=== PATIENT | female | born 1980 | race Caucasian/White ===

== ENCOUNTER 2017-01-15 10:32 | Emergency (ER) | payer OTHER ==
--- NOTE | 2017-01-15 11:14 | UC ---
Abdominal Pain Female HPI - HPI Summary HPI Summary: LLQ ABDOMINAL PAIN X 2 DAYS + RADIATION TO HER BACK NO FEVER, + CHILLS, NO N/V/D/C HX OF RECURRENT DIVERTICULITIS NO URINARY SX. - History of Current Complaint Chief Complaint: UCGI Stated Complaint: LOWER ABDOMINAL/BACK PAIN/CHILLS Time Seen by Provider: 01/15/17 10:53 Hx Obtained From: Patient Hx Last Menstrual Period: 12/21/16 ?: No Onset/Duration: Gradual Onset, Lasting Days - 2, Still Present Timing: Constant Severity Initially: Moderate Severity Currently: Moderate Location: Discrete At: LLQ Radiates: Yes Radiates to: Back Character: Aching, Dull Aggravating Factor(s): Movement Alleviating Factor(s): Nothing Associated Signs and Symptoms: Positive: Back Pain. Negative: Diaphoresis, Fever, Cough, Chest Pain, Dizzy, Constipation, Blood in Stool, Urinary Symptoms , Decreased Appetite, Vaginal Bleeding, Vaginal Discharge, Nausea, Vomiting, Diarrhea Allergies/Adverse Reactions: Allergies Allergy/AdvReac Type Severity Reaction Status Date / Time Morphine Allergy Severe SHAKING Verified 01/15/17 10:46 TREMORS Home Medications: Home Medications ARIPiprazole TAB* [Abilify TAB*] 15 mg PO DAILY 01/15/17 [History Confirmed ] Sertraline* [Zoloft*] 100 mg PO DAILY 01/15/17 [History Confirmed 01/15/17] PMH/Surg Hx/FS Hx/Imm Hx Endocrine History Of: Reports: Diabetes - Type II Cardiovascular History Of: Reports: Hypertension Respiratory History Of: Reports: Asthma, Bronchitis - FREQUENT 3 MONTHS AGO GI/ History Of: Reports: Kidney Stones - NONE KNOWN CURRENTLY Psychological History Of: Reports: Anxiety - MAJOR DEPRESSIVE DISORDER ANXIETY OK ON MEDS - Surgical History Surgical History: Yes Surgery Procedure, Year, and Place: vocal cord surgery 2012. GASTRIC BYPASS. - Family History Known Family History: Positive: Diabetes - Social History Alcohol Use: None Substance Use Type: None Smoking Status (MU): Never Smoked Tobacco Review of Systems Constitutional: Chills, Fatigue Skin: Negative Eyes: Negative ENT: Negative Respiratory: Negative Cardiovascular: Negative Gastrointestinal: Abdominal Pain Genitourinary: Negative All Other Systems Reviewed And Are Negative: Yes Physical Exam Triage Information Reviewed: Yes Appearance: Well-Appearing, Obese Vital Signs: Initial Vital Signs Temp 98.6 F 02/23/17 10:51 Pulse 109 01/15/17 10:51 Resp 18 01/15/17 10:51 BP 125/93 01/15/17 10:51 Pulse Ox 99 01/15/17 10:51 Vital Signs Reviewed: Yes Eyes: Positive: Conjunctiva Clear ENT: Positive: Normal ENT inspection, Hearing grossly normal, Pharynx normal Neck exam: Normal Neck: Positive: Supple, Nontender, No Lymphadenopathy Respiratory: Positive: Chest non-tender, Lungs clear, Normal breath sounds Cardiovascular: Positive: RRR, No Murmur, Pulses Normal Abdomen Description: Positive: No Organomegaly, Soft, Other: - LLQ TENDERNESS. Negative: CVA Tenderness (R), CVA Tenderness (L), Distended, Guarding Bowel Sounds: Positive: Present Musculoskeletal Exam: Normal Abd Pain Female Course/Dx - Differential Dx/Diagnosis Provider Diagnoses: ADOMINAL PAIN. DIVERTICULITIS Discharge - Discharge Plan Condition: Stable Disposition: HOME Prescriptions: Ciprofloxacin TAB* [Cipro Tab*] 500 mg PO BID #20 tab Metronidazole [Flagyl 500 MG TAB] 500 mg PO BID #20 tab Patient Education Materials: Diverticulitis (ED) Referrals: JEANNE Blevins [Primary Care Provider] - 2 Weeks
[2017-01-15 11:25] VITALS: BP 137/86
== END 2017-01-15 11:29 | disposition home or self-care (01) ==
LOC: UCCORT 10:32
DX: K57.92 Diverticulitis of intestine, part unspecified, without perforation or abscess without bleeding (principal); F41.9 Anxiety disorder, unspecified; F32.9 Major depressive disorder, single episode, unspecified; E66.9 Obesity, unspecified; Z98.84 Bariatric surgery status; Z88.5 Allergy status to narcotic agent
CPT/HCPCS: 99212; G0463

== ENCOUNTER 2017-02-10 09:14 | Emergency (ER) | payer OTHER ==
[2017-02-10 09:49] VITALS: BP 139/69
--- NOTE | 2017-02-10 10:09 | RAD ---
HISTORY: Pain with breathing COMPARISONS: March 22, 2012 VIEWS: 2: Frontal dual-energy and lateral views of the chest. FINDINGS: CARDIOMEDIASTINAL SILHOUETTE: The cardiomediastinal silhouette is normal. JAY: The jay are normal. PLEURA: The costophrenic angles are sharp. No pleural abnormalities are noted. LUNG PARENCHYMA: There is minimal linear opacification of the left lower lobe ABDOMEN: The upper abdomen is clear. There is no subphrenic gas. BONES AND SOFT TISSUES: No bone or soft tissue abnormalities are noted. OTHER: None. IMPRESSION: MINIMAL LINEAR ATELECTASIS OF LEFT LOWER LOBE
--- NOTE | 2017-02-10 10:21 | UC ---
Back Pain HPI - HPI Summary HPI Summary: right lower back pain x 2 days s/p abdominal surgery about 10 days ago with complication of pneumonia now having right lower back pain , worse with breathing no fever , no chills, no cough - History of Current Complaint Chief Complaint: UCRespiratory Stated Complaint: RIGHT LOWER BACK PAIN W DEEP BREATH Time Seen by Provider: 02/10/17 09:32 Hx Obtained From: Patient Hx Last Menstrual Period: 01/19/17 ?: No Onset/Duration: Gradual Onset, Lasting Days - 2, Still Present Timing: Intermittent, Lasting Minutes - 1 Severity Initially: Moderate Severity Currently: Moderate Back Pain: Is Discrete @ - right lower back Character: Sharp, Aching Aggravating: Cough - and breathing Associated Signs And Symptoms: Negative: Swelling, Redness, Bruising, Fever, Weakness, Numbness, Tingling, Abdominal Pain, Flank Pain, Bowel Incontinence, Weight Loss - Allergies/Home Medications Allergies/Adverse Reactions: Allergies Allergy/AdvReac Type Severity Reaction Status Date / Time Morphine Allergy Severe SHAKING Verified 02/10/17 09:36 TREMORS Home Medications: Home Medications HYDROcodone/ACETAMIN 5-325 MG* [Chandler 5-325 TAB*] 1 tab PO Q4H PRN 02/10/17 [ History Confirmed 02/10/17] PMH/Surg Hx/FS Hx/Imm Hx Endocrine History Of: Reports: Diabetes - Type II Cardiovascular History Of: Reports: Hypertension Respiratory History Of: Reports: Asthma - OK NOW INST BRING RESCUE INHALER, Bronchitis - FREQUENT 3 MONTHS AGO GI/ History Of: Reports: Kidney Stones - NONE KNOWN CURRENTLY Psychological History Of: Reports: Anxiety - MAJOR DEPRESSIVE DISORDER ANXIETY OK ON MEDS - Surgical History Surgical History: Yes Surgery Procedure, Year, and Place: vocal cord surgery 2012. gastric bypass. ulcer surgery- 01/2017 - Family History Known Family History: Positive: Diabetes - Social History Alcohol Use: None Substance Use Type: None Smoking Status (MU): Never Smoked Tobacco Review of Systems Constitutional: Negative Skin: Negative Eyes: Negative ENT: Negative Respiratory: Negative Cardiovascular: Negative All Other Systems Reviewed And Are Negative: Yes Physical Exam Triage Information Reviewed: Yes Appearance: Well-Appearing, No Pain Distress, Obese Vital Signs: Initial Vital Signs Temp 98.6 F 02/10/17 09:39 Pulse 89 02/10/17 09:39 Resp 20 02/10/17 09:39 BP 139/69 03/21/17 09:39 Pulse Ox 98 02/10/17 09:39 Vital Signs Reviewed: Yes Eye Exam: Normal Eyes: Positive: Conjunctiva Clear ENT: Positive: Normal ENT inspection, Hearing grossly normal, Pharynx normal Neck exam: Normal Neck: Positive: Supple, Nontender, No Lymphadenopathy Respiratory: Positive: Chest non-tender, Lungs clear, Normal breath sounds, No respiratory distress Cardiovascular: Positive: RRR, No Murmur, Pulses Normal Abdomen Description: Positive: Nontender, Soft Bowel Sounds: Positive: Present Musculoskeletal: Positive: Strength Intact, ROM Intact, No Edema Neurological: Positive: Alert, Muscle Tone Normal Skin Exam: Normal Back Pain Course/Dx - Differential Dx/Diagnosis Provider Diagnoses: pleurisy Discharge - Discharge Plan Condition: Stable Disposition: HOME Patient Education Materials: Low Back Strain (ED) Referrals: JEANNE David [Primary Care Provider] - 7 Days Additional Instructions: normal chest xray
== END 2017-02-10 10:28 | disposition home or self-care (01) ==
LOC: UCCORT 09:14
DX: R09.1 Pleurisy (principal); E66.9 Obesity, unspecified; Z98.84 Bariatric surgery status; Z88.5 Allergy status to narcotic agent
CPT/HCPCS: 71020; 99211; G0463

== ENCOUNTER 2017-07-26 19:27 | Emergency (ER) | payer OTHER ==
[2017-07-26 19:49] VITALS: BP 141/98
--- NOTE | 2017-07-26 19:56 | UC ---
Knee Pain HPI - HPI Summary HPI Summary: Was changing tire on knees and lost balance and fell onto knee. - History of Current Complaint Chief Complaint: UCLowerExtremity Stated Complaint: RIGHT KNEE INJURY Hx Obtained From: Patient Hx Last Menstrual Period: 06/29/17 ?: No Onset/Duration: Sudden Onset - Fell onto knee, Worse Since - onset with walking. Severity Initially: Moderate Severity Currently: Severe Character: Sharp, Aching Aggravating Factor(s): Movement, Weight Bearing, Stairs Alleviating Factor(s): Rest, Cold Associated Signs And Symptoms: Positive: Bruising. Negative: Numbness, Tingling Able to Bear Weight: Yes - Allergies/Home Medications Allergies/Adverse Reactions: Allergies Allergy/AdvReac Type Severity Reaction Status Date / Time Morphine Allergy Severe SHAKING Verified 02/10/17 09:36 TREMORS Home Medications: Home Medications Omeprazole CAP* [Prilosec CAP* 20 MG] 20 mg PO DAILY 07/26/17 [History Confirmed 07/26/17] Venlafaxine EXT RELEASE CAP* [Effexor Xr CAP*] 37.5 mg PO DAILY 07/26/17 [ History Confirmed 07/26/17] PMH/Surg Hx/FS Hx/Imm Hx GI/ History: Ulcer - Surgical History Surgical History: Yes Surgery Procedure, Year, and Place: vocal cord surgery 2011. gastric bypass. ulcer surgery- 01/2017 - Family History Known Family History: Positive: Cardiac Disease, Hypertension, Diabetes - Social History Occupation: Unemployed Lives: With Family Alcohol Use: None Substance Use Type: None Smoking Status (MU): Never Smoked Tobacco Have You Smoked in the Last Year: No Review of Systems Skin: Bruising Musculoskeletal: Arthralgia - right knee All Other Systems Reviewed And Are Negative: Yes Physical Exam Triage Information Reviewed: Yes Appearance: Well-Appearing, Pain Distress - mild/ moderate, Obese Vital Signs: Initial Vital Signs Temp 98.4 F 07/26/17 19:47 Pulse 93 07/26/17 19:47 Resp 14 07/26/17 19:47 BP 141/98 07/26/17 19:47 Vital Signs Reviewed: Yes Eyes: Positive: Conjunctiva Clear Neck exam: Normal Respiratory Exam: Normal Cardiovascular Exam: Normal Musculoskeletal: Positive: ROM Limited @ - right knee with tenderness over the patella., Other: - guarding, unalbe to test instability Neurological: Positive: Other: - decreased sensation to pinprick over the patella. Psychological Exam: Normal Skin Exam: Normal Knee Pain Course/Dx - Differential Dx/Diagnosis Differential Diagnosis/HQI/PQRI: Contusion, Fracture (Closed), Sprain Provider Diagnoses: Contusion knee. Nerve contusion. Discharge - Discharge Plan Condition: Stable Disposition: HOME Patient Education Materials: Contusion in Adults (ED) Referrals: JEANNE David [Primary Care Provider] - 5 Days (Recheck on the pain.) Additional Instructions: A nerve contusion may take weeks or months to heal. You can try ice, but it may cause more pain. GABAPENTIN: Gabapentin is an anti-seizure medication that is more often used for nerve pain. It helps to stabilize the nerve to stop the pain. Its primary side effect is sedation which will improve over time. Most people will start with only one capsule 1 to 2 hours before bed, but if your pain is more severe you may want to start with one capsule twice a day. If the pain is still an issue after another 7 to 10 days the dose may be increased to a maximum of 1 capsule 3 times a day.
--- NOTE | 2017-07-26 20:45 | RAD ---
INDICATION: Right knee injury. TECHNIQUE: 4 views of the right knee were obtained. FINDINGS: The bones are in normal alignment. No joint effusion or fracture is seen. Joint spaces appear maintained. IMPRESSION: NO EVIDENCE FOR FRACTURE.
== END 2017-07-26 20:39 | disposition home or self-care (01) ==
LOC: UCCORT 19:27
DX: S80.01XA Contusion of right knee, initial encounter (principal); W18.39XA Other fall on same level, initial encounter; S84.91XA Injury of unspecified nerve at lower leg level, right leg, initial encounter; Z88.5 Allergy status to narcotic agent; K25.9 Gastric ulcer, unspecified as acute or chronic, without hemorrhage or perforation; Z98.84 Bariatric surgery status; E66.9 Obesity, unspecified
CPT/HCPCS: 99212; G0463

== ENCOUNTER 2019-01-02 09:50 | Emergency (ER) | payer OTHER ==
[2019-01-02 10:54] VITALS: BP 154/101
--- NOTE | 2019-01-02 11:23 | UC ---
Back Pain HPI - HPI Summary HPI Summary: 38 y/o female with long standing h/o hip pain--> lower back pain, knee problems presents with 1 week increase in hip pain, unable to sleep due to pain, unable o lay on either hip. h/o lower back pain, unable to sleep on back x years. no fever, chills, no other symptoms. h/o knee injuries, was seen in PT- told hips for "weak". NO injuries, trauma. unable to take nsaids d/t gastric bypass - History of Current Complaint Chief Complaint: UCLowerExtremity Stated Complaint: BILATERAL HIP PAIN Time Seen by Provider: 01/02/19 11:22 Hx Obtained From: Patient Hx Last Menstrual Period: 11/25/18 ?: No Onset/Duration: Sudden Onset, Lasting Days Timing: Constant Severity Initially: Moderate Severity Currently: Moderate Pain Intensity: 6 Pain Scale Used: 0-10 Numeric Back Pain: Is Discrete @ - b/l hips - Allergies/Home Medications Allergies/Adverse Reactions: Allergies Allergy/AdvReac Type Severity Reaction Status Date / Time morphine Allergy See Comment Verified 01/02/19 10:49 Home Medications: Home Medications Venlafaxine EXT RELEASE CAP* [Effexor Xr CAP*] 300 mg PO DAILY 01/02/19 [ History Confirmed 01/02/19] PMH/Surg Hx/FS Hx/Imm Hx Previously Healthy: Yes - Surgical History Surgical History: Yes Surgery Procedure, Year, and Place: vocal cord surgery 2011. gastric bypass. ulcer surgery- 01/2017. hysterctomy - Family History Known Family History: Positive: Cardiac Disease, Hypertension, Diabetes - Social History Alcohol Use: None Substance Use Type: None Smoking Status (MU): Never Smoked Tobacco Have You Smoked in the Last Year: No Review of Systems All Other Systems Reviewed And Are Negative: Yes Musculoskeletal: Positive: Arthralgia, Decreased ROM, Myalgia Is Patient Immunocompromised?: No Physical Exam Triage Information Reviewed: Yes Appearance: Well-Appearing, No Pain Distress, Well-Nourished Vital Signs: Initial Vital Signs Temp 97.8 F 01/02/19 10:50 Pulse 92 01/02/19 10:50 Resp 18 01/02/19 10:50 BP 154/101 01/02/19 10:50 Pulse Ox 100 01/02/19 10:50 Vital Signs Reviewed: Yes Musculoskeletal: Positive: Strength Intact - knee, hip, ankles b/l strenght grossly intact, ROM Intact - mild pain with add greater tahn 20 degrees with hip pain to greater troch b/l, No Edema, Other: - TTP over IT band from prox to greater troch down to mid thigh b/l. pain worse over greater troch b/l. Neurological Exam: Normal Neurological: Positive: Other: - pateller reflexes 2+ b/l Psychological Exam: Normal Skin Exam: Normal Back Pain Course/Dx - Course Course Of Treatment: ileotibial band syndrome with greater troch bursitis, steroids given as patient unable to take NSAIDs, follow up with orthopedics - Differential Dx/Diagnosis Provider Diagnosis: Greater trochanteric bursitis of both hips Discharge - Sign-Out/Discharge Documenting (check all that apply): Patient Departure All imaging exams completed and their final reports reviewed: No Studies - Discharge Plan Condition: Good Disposition: HOME Prescriptions: predniSONE [Prednisone 20 MG TAB] 20 mg PO SEE INSTRUCTIONS #4 tablet Patient Education Materials: Hip Bursitis (ED), Tendinitis (ED) Referrals: Roselia Bryan MD [Primary Care Provider] - Additional Instructions: Ileotibial band syndrome with greater trochanteric bursitis - Steroids as directed to help with inflammation, pain - Tyelnol as needed for pain - Stretches as shown - Follow up with sports meds for more exercises, strengthening, stretching. - GO to ER with fever, chills, increased pain, abdominal pain, urinary symptoms or bowel changes - Billing Disposition and Condition Condition: GOOD Disposition: Home
== END 2019-01-02 11:47 | disposition home or self-care (01) ==
LOC: UCCORT 09:50
DX: M70.62 Trochanteric bursitis, left hip (principal); M70.61 Trochanteric bursitis, right hip; M76.32 Iliotibial band syndrome, left leg; M76.31 Iliotibial band syndrome, right leg; Z88.5 Allergy status to narcotic agent
CPT/HCPCS: 99212; G0463

== ENCOUNTER 2019-05-24 10:07 | Emergency (ER) | payer OTHER ==
--- OUTSIDE RECORDS SUMMARY | 2019-05-24 10:58 | XMS REPORT | Continuity of Care Document ---
:1980 External Reference #:[id number] Author Name Sundayflora Sharona Care Team Providers Name Role Phone Shanice Griffin MD Primary Care Physician Unavailable Payers Date Identification Numbers Payment Provider Subscriber Effective: 2011 Policy Number: [id number] Azar Be PayID: [id number] [address] [place] [address] Family History Date Family Member(s) Observation Comments General Cancer, Breast General Cancer, Lung General Heart Disease Social History Type Date Description Comments Sex Unknown Marital Status Lives With Occupation Disabled Tobacco Use Start: Unknown Never Smoked Cigarettes Tobacco Use Start: Unknown Never Smoked Cigars Tobacco Use Start: Unknown Never Smoked A Pipe Smokeless Tobacco Never Used Smokeless Tobacco ETOH Use Denies alcohol use Tobacco Use Start: Unknown Patient has never smoked Smoking Status Reviewed: 05/19/19 Patient has never smoked Exercise Type/Frequency Exercises rarely Allergies, Adverse Reactions, Alerts Active Allergies Reaction Severity Comments Date Morphine tremors 08/03/2012 Penicillin childhood allergy 01/31/2019 Medications Active Medications SIG Qnty Indications Ordering Date Provider Tramadol HCL 1-2 tablets 60tabs M54.5 Shanice Griffin MD 05/19/2019 50mg Tablets every 6 hours as needed Cyclobenzaprine HCL take one 30tabs M54.5 Shanice Griffin MD 05/19/2019 10mg tablet every 8 Tablets hours Gabapentin take 1 capsule 60caps Shanice Griffin MD 05/10/2019 100mg Capsules by mouth at night for 1 week then 1 by mouth twice daily ongoing Cetirizine HCL 1 by mouth 90tabs Shanice Griffin MD 05/10/2019 10mg Tablets every day Metformin HCL 1 tablets 180tabs E28.2 Shanice Griffin MD 04/04/2019 500mg Tablets every morning and 1 tablet by mouth at bedtime Flovent HFA 1 puff twice a Shanice Griffin MD 01/31/2019 220mcg/Act day Aerosol Sumatriptan Succinate take one 8tabs Shanice Griffin MD 01/31/2019 100mg tablet at the Tablets start of headache; Lisinopril take one 90tabs I10 Shanice Griffin MD 01/31/2019 10mg Tablets tablet by mouth every day Symbicort inhale 2 puffs 10.2units J45.909 Shanice Griffin MD 01/31/2019 80-4.5mcg/Act by mouth two Aerosol times daily Ativan 1 tab by mouth Unknown 0.5mg Tablets twice a day as needed for anxiety Vitamin 1 by mouth Unknown Tablets every day Omeprazole 1 by mouth Unknown 40mg Capsules DR every day Melatonin 1 prior to Unknown 5mg Tablets bedtime Prazosin HCL 1 daily in Unknown 5mg Capsules evening Effexor XR 2 by mouth Unknown 150mg Caps ER every day 24HR Albuterol 2 puffs po qid 1units Unknown 90mcg/Act Aerosol prn History Medications Cyclobenzaprine HCL 05/05/19 reports 14tabs Shanice Griffin MD 05/02/2019 - 10mg not taking 1 by 05/19/2019 Tablets mouth at night Bystolic 1 po qd 30tabs Patrick Brock, 08/03/2012 - Does Not Know M.D. 01/31/2019 Tablets Seroquel 05/05/19 reports Unknown - 50mg Tablets not taking one at 05/19/2019 bedtime Prednisone tapering dose Unknown - 5mg Tablets 01/30/2019 Meclizine HCL 1 by mouth three Unknown - 12.5mg Tablets times a day as 01/31/2019 needed Vitamin D-1000 Maximum 05/05/19 reports Unknown - Strength not taking 1 by 05/19/2019 1000Unit Tablets mouth every day Iron 1 by mouth every Unknown - 325(65Fe) mg Tablets day 01/30/2019 Amitriptyline HCL 1 po qhs Unknown - 10mg 01/30/2019 Tablets Symbicort 2 puff bid 1units Unknown - 160-4.5mcg/Act 01/31/2019 Aerosol Metformin HCL 500 mg bid 60tabs Unknown - 500mg Tablets 03/15/2019 Geodon bid 30caps Unknown - 60mg Capsules 01/30/2019 Paroxetine HCL qd 135tabs Unknown - 30mg Tablets 01/31/2019 Prazosin HCL qd Unknown - 6mg Capsules 01/30/2019 Buspirone HCL 1 po tid 60tabs Unknown - 15mg Tablets 01/31/2019 Medications Administered in Office Medication SIG Qnty Indications Ordering Provider Date Depomedrol 40MG Lorena Esquivel M.D. 04/07/2019 Injection Depomedrol 40MG Lorena Esquivel M.D. 04/07/2019 Injection Depomedrol 80MG Mel Schuster MD 2019 Injection Vital Signs Date Vital Result Comment 05/19/2019 11:13am BP Systolic Sitting 146 mmHg BP Diastolic Sitting 99 mmHg 05/19/2019 11:10am Height 63.25 inches 5'3.25" Weight 315.00 lb Heart Rate 104 /min BP Systolic Sitting 159 mmHg BP Diastolic Sitting 111 mmHg Body Temperature 98.3 F O2 % BldC Oximetry 96 % BMI (Body Mass Index) 55.4 kg/m2 05/05/2019 10:14am Height 63.25 inches 5'3.25" Weight 318.00 lb Heart Rate 88 /min BP Systolic Sitting 137 mmHg BP Diastolic Sitting 95 mmHg Body Temperature 97.6 F O2 % BldC Oximetry 97 % BMI (Body Mass Index) 55.9 kg/m2 04/07/2019 9:03am Height 63.25 inches 5'3.25" Heart Rate 93 /min BP Systolic 126 mmHg BP Diastolic 80 mmHg Respiratory Rate 18 /min Body Temperature 98.1 F Pain Level 5 04/04/2019 5:01pm Height 63.25 inches 5'3.25" Weight 322.00 lb Heart Rate 79 /min BP Systolic Sitting 131 mmHg L forearm auto BP Diastolic Sitting 81 mmHg L forearm auto Body Temperature 97.7 F Pain Level 6 back O2 % BldC Oximetry 98 % BMI (Body Mass Index) 56.6 kg/m2 03/16/2019 1:30pm Height 63.25 inches 5'3.25" Weight 316.00 lb Heart Rate 99 /min BP Systolic Sitting 142 mmHg BP Diastolic Sitting 96 mmHg Respiratory Rate 18 /min Pain Level 0 BMI (Body Mass Index) 55.5 kg/m2 02/21/2019 9:17am Height 63.25 inches 5'3.25" Weight 311.00 lb Heart Rate 113 /min BP Systolic 122 mmHg BP Diastolic 82 mmHg Respiratory Rate 18 /min Body Temperature 97.8 F Pain Level 6 BMI (Body Mass Index) 54.7 kg/m2 01/31/2019 2:49pm Height 63.25 inches 5'3.25" Weight 310.00 lb Heart Rate 98 /min BP Systolic Sitting 149 mmHg Left forearm BP Diastolic Sitting 98 mmHg Left forearm Body Temperature 97.8 F Pain Level 6 lower back O2 % BldC Oximetry 98 % BMI (Body Mass Index) 54.5 kg/m2 01/07/2019 11:08am Height 62 inches 5'2" Weight 319.00 lb BMI (Body Mass Index) 58.3 kg/m2 08/03/2012 1:59pm Weight 346.00 lb Heart Rate 78 /min BP Systolic Sitting 120 mmHg BP Diastolic Sitting 78 mmHg Results Test Date Facility Test Result H/L Range Note Comp Metabolic Panel 02/01/2019 [facility] Sodium 144 mmol/L N 135-145 [address] [place] [address] [phone] Potassium 4.2 mmol/L N 3.5-5.0 Chloride 106 mmol/L N 101-111 Co2 Carbon Dioxide 27 mmol/L N 22-32 Anion Gap 11 mmol/L N 2-11 Glucose 85 mg/dL N 70-100 Blood Urea Nitrogen 10 mg/dL N 6-24 Creatinine 0.80 mg/dL N 0.51-0.95 BUN/Creatinine Ratio 12.5 N 8-20 Calcium 8.9 mg/dL N 8.6-10.3 Total Protein 6.7 g/dL N 6.4-8.9 Albumin 3.9 g/dL N 3.2-5.2 Globulin 2.8 g/dL N 2-4 Albumin/Globulin Ratio 1.4 N 1-3 Total Bilirubin 0.60 mg/dL N 0.2-1.0 Alkaline Phosphatase 105 U/L High 34-104 Alt 24 U/L N 7-52 Ast 23 U/L N 13-39 Egfr Non- 80.3 >60 Egfr 97.1 >60 1 CBC Auto Diff 02/01/2019 [facility] White Blood 6.4 10^3/uL N 3.5-10.[address] [place] [address] [phone] Red Blood Count 5.02 10^6/uL N 4.00-5.40 Hemoglobin 13.6 g/dL N 12.0-16.0 Hematocrit 42 % N 35-47 Mean Corpuscular Volume 83 fL N 80-97 Mean Corpuscular Hemoglobin 27 pg N 27-31 Mean Corpuscular HGB Conc 33 g/dL N 31-36 Red Cell Distribution Width 17 % High 10.5-15 Platelet Count 296 10^3/uL N 150-450 Mean Platelet Volume 7.5 fL N 7.4-10.4 Abs Neutrophils 4.5 10^3/uL N 1.5-7.7 Abs Lymphocytes 1.2 10^3/uL N 1.0-4.8 Abs Monocytes 0.5 10^3/uL N 0-0.8 Abs Eosinophils 0.1 10^3/uL N 0-0.6 Abs Basophils 0 10^3/uL N 0-0.2 Abs Nucleated RBC 0 10^3/uL Granulocyte % 70.7 % Lymphocyte % 18.9 % Monocyte % 7.9 % Eosinophil % 2.2 % Basophil % 0.3 % Nucleated Red Blood Cells % 0.2 Lipid Profile 02/01/2019 [facility] Triglycerides 126 mg/dL 2 (Trig/Chol/HDL) [address] [place] [address] [phone] Cholesterol 200 mg/dL 3 HDL Cholesterol 47.2 mg/dL 4 LDL Cholesterol 128 mg/dL 5 Laboratory test 02/01/2019 [facility] TSH (Thyroid 1.86 mcIU/mL N 0.34-5.[address] Stim Horm) [place] [address] [phone] Hemoglobin A1c (Glyco HGB) 4.9 % N 4.0-5.6 6 Xray 01/18/2019 [facility] SP Lumbar Ap//Lat 2-3 Views <pending > [address] [place] [address] [phone] Hips-Bilateral 5+ VWS <pending> 1 Because ethnic data is not always readily available, this report includes an eGFR for both -Americans and non- Americans. The National Kidney Disease Education Program (NKDEP) does not endorse the use of the MDRD equation for patients that are not between the ages of 18 and 70, are , have extremes of body size, muscle mass, or nutritional status, or are non- or non-. According to the National Kidney Foundation, irrespective of diagnosis, the stage of the disease is based on the level of kidney function: Stage Description GFR(mL/min/1.73 m(2)) 1 Kidney damage with normal or decreased GFR 90 2 Kidney damage with mild decrease in GFR 60-89 3 Moderate decrease in GFR 30-59 4 Severe decrease in GFR 15-29 5 Kidney failure <15 (or dialysis) 2 Desirable: <150 Borderline High: 150-199 High: 200-499 Very High: >500 3 Desirable: <200 Borderline High: 200-239 High: >239 4 Low: <40 Desirable: 40-60 High: >60 5 Desirable: <100 Near Optimal: 100-129 Borderline High: 130-159 High: 160-189 Very High: >189 6 Therapeutic target for the treatment of diabetes mellitus patients is <7% HBA1C, and in selective patients <6.0%. Please refer to [place] [employer] diabetic care guidelines for further information. Procedures Date Code Description Status 04/07/2019 Injection, Carpal Tunnel Completed 2019 Inj/Aspir Major JT Or Bursa W/ US Completed 02/08/2019 [id number] Mammogram Completed 09/21/2012 69299 Fibroptic Laryngoscopy Completed 08/31/2012 53671 Laryngy Dir Exc Tumor/Strip Vocal Cords/Epig Completed W/Microscope/Telesco 08/03/2012 54379 Fibroptic Laryngoscopy Completed Encounters Type Date Location Provider Dx Diagnosis Office Visit 05/05/2019 [facility] Internal Shanice Griffin MD Z12.4 Encounter for 10:20a Medicine - [facility] screening for malignant neoplasm of cervix M54.5 Low back pain I10 Essential (primary) hypertension Office Visit 04/04/2019 5:00p [facility] Elias, I10 Ess[facility] F33.9 Major depressive disorder, recurrent, unspecified J45.909 Unspecified asthma, uncomplicated G47.00 Insomnia, unspecified E28.2 Polycystic ovarian syndrome K21.9 Gastro-esophageal reflux disease without esophagitis M54.5 Low back pain G43.009 Migraine w/o aura, not intractable, w/o status migrainosus Office Visit 03/16/2019 1:15p Orthopedic Lorena Esquivel, G56.02 Carpal tunnel Services Of M.D. syndrome, left C.M.A. upper limb Office Visit 02/21/2019 8:30a Orthopedic Lu Roman G56.02 Carpal tunnel Services Of RPA-C syndrome, left C.M.A. upper limb G56.01 Carpal tunnel syndrome, right upper limb R20.0 Anesthesia of skin R20.2 Paresthesia of skin M79.642 Pain in left hand M79.641 Pain in right hand Office Visit 2019 1:30p Sports Medicine Of Mel Schuster M54.5 Low back pain Alexander Hatch MD M70.61 Trochanteric bursitis, right hip M70.62 Trochanteric bursitis, left hip Office Visit 01/31/2019 3:00p [facility] Shaniceroseanne Griffin, I10 Essential [facility] F33.9 Major depressive disorder, recurrent, unspecified J45.909 Unspecified asthma, uncomplicated G47.00 Insomnia, unspecified K21.9 Gastro-esophageal reflux disease without esophagitis E28.2 Polycystic ovarian syndrome Z12.31 Encntr screen mammogram for malignant neoplasm of breast Office Visit 01/07/2019 11:10a Sports Medicine Jerome Schuster M54.5 Low back pain Alexander Hatch MD M70.60 Trochanteric bursitis, unspecified hip Office Visit 08/17/2018 2:10p Sports Medicine Mel Schuster, S06.0x1D Concussion w Loc Of [place] [facility] ALVAREZ of 30 minutes or [place] elizalde, subs S06.0x9D Concussion w loss of consciousness of unsp duration, subs Office Visit 08/03/2018 1:30p Sports Medicine Mel Schuster, S06.0x1A [facility] 30 [facility] or [place] less, init S06.0x9A Concussion w loss of consciousness of unsp duration, init Office Visit 08/03/2012 1:45p ENT Services Of Patrick Brock, 784.42 Dysphonia C.M.A. AT [place] Rogelio 478.4 Polyp Vocal Cord Or Larynx Plan of Treatment Future Appointment(s):07/05/2019 2:20 pm - Sally Dixon MD at [facility] Internal Medicine - [facility]10/19/2019 2:00 pm - Gagan Rondon M.D. at [place]05/19/2019 - Shanice Griffin, MDM54.5 Low back painNew Medication:Tramadol HCL 50 mg - 1-2 tablets every 6 hours as neededCyclobenzaprine HCL 10 mg - take one tablet every 8 hours
--- OUTSIDE RECORDS SUMMARY | 2019-05-24 10:58 | XMS REPORT | Continuity of Care Document ---
:1980 External Reference #:[id number] Author Name Sundayflora Hsarona Care Team Providers Name Role Phone Shanice Griffin MD Primary Care Physician Unavailable Payers Date Identification Numbers Payment Provider Subscriber Effective: 2011 Policy Number: [id number] Azar Be PayID: [id number] [address] [place] [address] Family History Date Family Member(s) Observation Comments [...] Patient has never smoked Smoking Status Reviewed: 05/05/19 Patient has never smoked Exercise Type/Frequency Exercises rarely Allergies, Adverse Reactions, Alerts Active Allergies Reaction Severity Comments Date Morphine tremors 08/03/2012 Penicillin childhood allergy 01/31/2019 Medications Active Medications SIG Qnty Indications Ordering Date Provider Cyclobenzaprine HCL 05/05/19 14tabs Shanice Griffin MD 05/02/2019 10mg reports not Tablets taking 1 by mouth at night Metformin HCL 1 tablets 180tabs E28.2 Shanice [...] 1 by mouth Unknown Tablets every day Seroquel 05/05/19 Unknown 50mg Tablets reports not taking one at bedtime Omeprazole 1 by mouth Unknown 40mg Capsules DR every day Melatonin 1 prior to Unknown 5mg Tablets bedtime Prazosin HCL 1 daily in Unknown 5mg Capsules evening Effexor XR 2 by mouth Unknown 150mg Caps ER every day 24HR Vitamin D-1000 Maximum 05/05/19 Unknown Strength reports not 1000Unit Tablets taking 1 by mouth every day Albuterol 2 puffs po qid 1units Unknown 90mcg/Act Aerosol prn History Medications Bystolic 1 po qd 30tabs Patrick Brock, 08/03/2012 - Does Not Know M.D. 01/31/2019 Tablets Buspirone HCL 1 po tid 60tabs Unknown - 15mg 01/31/2019 Tablets Prazosin HCL qd Unknown - 6mg Capsules 01/30/2019 Paroxetine HCL qd 135tabs Unknown - 30mg 01/31/2019 Tablets Geodon bid 30caps Unknown - 60mg Capsules 01/30/2019 Metformin HCL 500 mg bid 60tabs Unknown - 500mg 03/15/2019 Tablets Symbicort 2 puff bid 1units Unknown - 160-4.5mcg/Act 01/31/2019 Aerosol Amitriptyline HCL 1 po qhs Unknown - 10mg 01/30/2019 Tablets Iron 1 by mouth every Unknown - 325(65Fe) mg Tablets day 01/30/2019 Meclizine HCL 1 by mouth three Unknown - 12.5mg times a day as 01/31/2019 Tablets needed Prednisone tapering dose Unknown - 5mg Tablets 01/30/2019 Medications Administered in Office Medication SIG Qnty Indications Ordering Provider Date Depomedrol 40MG Lorena Esquivel M.D. 04/07/2019 Injection Depomedrol 40MG Lorena Esquivel M.D. 04/07/2019 Injection Depomedrol 80MG Mel Schuster MD 2019 Injection Vital Signs Date Vital Result Comment 05/05/2019 10:14am Height 63.25 inches 5'3.25" Weight [...] H/L Range Note Comp Metabolic Panel 02/01/2019 [facility] Sodium 144 mmol/L N 135-[address] [place] [address] [phone] Potassium 4.2 mmol/L N 3.5-5.0 Chloride 106 [...] 97.1 >60 1 CBC Auto Diff 02/01/2019 [facility] White Blood 6.4 10^3/uL N 3.5-10.[address] [place] [address] [phone] Red Blood Count 5.02 10^6/uL N 4.00-5.40 [...] Blood Cells % 0.2 Lipid Profile 02/01/2019 [facility] Triglycerides 126 mg/dL 2 (Trig/Chol/HDL) [address] [place] [address] [phone] Cholesterol 200 mg/dL 3 HDL Cholesterol 47.2 mg/dL 4 LDL Cholesterol 128 mg/dL 5 Laboratory test 02/01/2019 [facility] TSH (Thyroid 1.86 mcIU/mL N 0.34-5.[address] Stim Horm) [place] [address] [phone] Hemoglobin A1c (Glyco HGB) 4.9 % N 4.0-5.6 6 Xray 01/18/2019 [facility] SP Lumbar Ap//Lat 2-3 Views <pending > [address] [place] [address] [phone] Hips-Bilateral 5+ VWS <pending> 1 Because ethnic [...] in selective patients <6.0%. Please refer to [place] [employer] diabetic care guidelines for further information. Procedures Date Code Description Status 04/07/2019 Injection, Carpal Tunnel Completed 2019 Inj/Aspir Major JT Or Bursa W/ US Completed 02/08/2019 [id number] Mammogram Completed 09/21/2012 72360 Fibroptic Laryngoscopy Completed 08/31/2012 82996 Laryngy Dir Exc Tumor/Strip Vocal Cords/Epig Completed W/Microscope/Telesco 08/03/2012 05870 Fibroptic Laryngoscopy Completed Encounters Type Date Location Provider Dx Diagnosis Office Visit 04/04/2019 [facility] Shanice Griffin MD I10 Essential ( primary) 5:00p Medicine - [facility] hypertension F33.9 Major depressive disorder, recurrent, unspecified [...] Of Mel Schuster M54.5 Low back pain [facility] AT [place] M70.61 Trochanteric bursitis, right hip M70.62 Trochanteric bursitis, left hip Office Visit 01/31/2019 3:00p [facility] Internal Shanice Griffin, I10 Essential ( primary) Medicine - [facility] hypertension F33.9 Major depressive disorder, recurrent, unspecified J45.909 Unspecified asthma, uncomplicated G47.00 Insomnia, unspecified K21.9 Gastro-esophageal reflux disease without esophagitis E28.2 Polycystic ovarian syndrome Z12.31 Encntr screen mammogram for malignant neoplasm of breast Office Visit 01/07/2019 11:10a Sports Medicine Of Mel Schuster M54.5 Low back pain Alexander AT [place] M70.60 Trochanteric bursitis, unspecified hip Office Visit 08/17/2018 2:10p Sports Medicine Mel Schuster, S06.0x1D Concussion w Loc Of [facility] AT of 30 minutes or [place] less, subs S06.0x9D Concussion w loss of consciousness of unsp duration, subs Office Visit 08/03/2018 1:30p Sports Medicine Mel Schuster, S06.0x1A Concussion w Loc Of [facility] AT of 30 minutes or [place] less, init S06.0x9A Concussion w loss of consciousness of unsp duration, init Office Visit 08/03/2012 1:45p ENT Services Of Patrick Brock, 784.42 Dysphonia C.M.A. AT [place] Rogelio 478.4 Polyp Vocal Cord Or Larynx Plan of Treatment Future Appointment(s):07/05/2019 2:00 pm - Shanice Griffin MD at [facility] Internal Medicine - [facility]05/05/2019 - Shanice Griffin MDZ12.4 Encounter for screening for malignant neoplasm of cervixComments:[place]AREN GYNM54.5 Low back painComments:Restart the muscle relaxant twice a day till the time we are trying to get the MRI approvedIf musclerelaxant does not work, we will try gabapentinMight need referral to [id number] Essential (primary) hypertensionComments:BP better controlled Continue to lose weight
[2019-05-24 11:08] VITALS: BP 137/86
--- NOTE | 2019-05-24 11:18 | UC ---
Throat Pain/Nasal Mario HPI - HPI Summary HPI Summary: 39 y/o female presents to the urgent care c/o sore throat for the past week associated w/ mild nasal congestion and clear nasal discharge. She has Hx of seasonal allergies. She has mild dry cough at times. Sometime she feels her mouth is very dry and it hurts more when she swallows. Pain is 4/10. She has been taken Tylenol/ Ibuprofen to alleviate symptoms. Pt denies fever, LESLIE. SOB, chest pain, abdominal pain, N/V/d. - History of Current Complaint Chief Complaint: UCGeneralIllness Stated Complaint: ST Time Seen by Provider: 05/24/19 11:09 Hx Obtained From: Patient Hx Last Menstrual Period: 11/25/18 ?: No - Hx of Hysterectomy in 11/2018 Onset/Duration: Gradual Onset, Lasting Weeks - 1 week sore throat, Still Present Severity: Moderate Pain Intensity: 4 Pain Scale Used: 0-10 Numeric Cough: None Associated Signs & Symptoms: Positive: Nasal Discharge - clear. Negative: Dysphagia, Wheezing, Fever Related History: Seasonal Allergies - Epiglottits Risk Factors Epiglottis Risk Factors: Negative - Allergies/Home Medications Allergies/Adverse Reactions: Allergies Allergy/AdvReac Type Severity Reaction Status Date / Time morphine Allergy See Comment Verified 05/24/19 11:02 Home Medications: Home Medications Aspirin/Acetaminophen/Caffeine [Excedrin Extra Strength Caplet] 1 each PO ONCE PRN 05/24/19 [History Confirmed 05/24/19] Cyclobenzaprine TAB* [Flexeril 10 MG TAB*] 10 mg PO TID 05/24/19 [History Confirmed 05/24/19] Gabapentin CAP(*) [Neurontin 100 mg CAP(*)] 200 mg PO BID 05/24/19 [History Confirmed 05/24/19] Ibuprofen TAB* [Motrin TAB* 800 MG] 1,000 mg PO Q6H PRN 05/24/19 [History Confirmed 05/24/19] Lisinopril TAB* [Prinivil TAB 10 MG*] 10 mg PO DAILY 05/24/19 [History Confirmed 05/24/19] metFORMIN* [Glucophage 500 MG TAB *] 500 mg PO DAILY 05/24/19 [History Confirmed 05/24/19] traMADol TAB* [Ultram*] 50 mg PO BEDTIME PRN 05/24/19 [History Confirmed ] PMH/Surg Hx/FS Hx/Imm Hx Previously Healthy: Yes Endocrine History: Dyslipidemia Other Endocrine History: PCOS Cardiovascular History: Hypertension Other Neurological History: chronic back pain Psychological History: Depression - Surgical History Surgical History: Yes Surgery Procedure, Year, and Place: vocal cord surgery 2011. gastric bypass. ulcer surgery- 01/2017. hysterctomy - Family History Known Family History: Positive: Cardiac Disease, Hypertension, Diabetes - Social History Occupation: Employed Full-time Lives: With Family Alcohol Use: None Substance Use Type: None Smoking Status (MU): Never Smoked Tobacco Have You Smoked in the Last Year: No Review of Systems All Other Systems Reviewed And Are Negative: Yes Constitutional: Positive: Negative Skin: Positive: Negative Eyes: Positive: Negative ENT: Positive: Sore Throat, Nasal Discharge - clear, Other - clear PND Respiratory: Positive: Cough - mild dry at times Cardiovascular: Positive: Negative Gastrointestinal: Positive: Negative Genitourinary: Positive: Negative Motor: Positive: Negative Neurovascular: Positive: Negative Musculoskeletal: Positive: Negative Neurological: Positive: Negative Psychological: Positive: Negative Is Patient Immunocompromised?: No Physical Exam - Summary Physical Exam Summary: VITAL SIGNS: Reviewed. GENERAL: Patient is a well developed and nourished obese female who is sitting comfortably in the examining table. Patient is not in any acute respiratory distress. HEAD AND FACE: No signs of trauma. No ecchymosis, hematomas or skull depressions. No sinus tenderness. EYES: PERRLA, EOMI x 2, No injected conjunctiva, no nystagmus. No photophobia. EARS: Hearing grossly intact. Ear canals and tympanic membranes are within normal limits. MOUTH: Positive pharynx with mild erythema, no exudates, No B/L tonsillar enlargement , no exudate. Uvula in midline. edematous nasal mucosa w/ clear nasal discharge, clear PND NECK: Supple, trachea is midline, Positive anterior cervical lymphadenopathy, no JVD, no carotid bruit, no c-spine tenderness, neck with full ROM. No meningeal signs, no Kernig's or brudzinskis signs. CHEST: Symmetric, no tenderness at palpation LUNGS: Clear to auscultation bilaterally. No wheezing or crackles. CVS: Regular rate and rhythm, S1 and S2 present, no murmurs or gallops appreciated. ABDOMEN: Soft, non-tender. No signs of distention. No rebound no guarding, and no masses palpated. Bowel sounds are normal. EXTREMITIES: FROM in all major joints, no edema, no cyanosis or clubbing. NEURO: Alert and oriented x 3. No acute neurological deficits. Pt follows commands. SKIN: Dry and warm Triage Information Reviewed: Yes Vital Signs: Initial Vital Signs Temp 98.0 F 05/24/19 11:04 Pulse 87 05/24/19 11:04 Resp 21 05/24/19 11:04 BP 137/86 05/24/19 11:04 Pulse Ox 100 05/24/19 11:04 Throat Pain/Nasal Course/Dx - Course Course Of Treatment: 39 y/o female presents to the urgent care c/o sore throat for the past week associated w/ mild nasal congestion and clear nasal discharge. She has Hx of seasonal allergies. She has mild dry cough at times. Sometime she feels her mouth is very dry and it hurts more when she swallows. Pain is 4/10. She has been taken Tylenol/ Ibuprofen to alleviate symptoms. Pt denies fever, LESLIE. SOB, chest pain, abdominal pain, N/V/d. Hx obtained. Rapid strep ordered, result: negative. Viral pharyngitis.Pt advised to continue taken ibuprofen PO to alleviates symptoms of pain and swelling. Advised on hand washing to avoid spreading. Pt advised to rest, eat well and avoid strenuous exercise. If symptoms do not improve or worsen advised to return to the urgent care or f/u with her PCP for further evaluation and treatment. D/C instructions explained. Pt understood and agreed w/ plan of care. - Differential Dx/Diagnosis Differential Diagnosis/HQI/PQRI: Laryngitis, Mononucleosis, Pharyngitis, Sinusitis, Tonsillitis, URI Provider Diagnosis: Acute viral pharyngitis Discharge - Sign-Out/Discharge Documenting (check all that apply): Patient Departure - d/C home All imaging exams completed and their final reports reviewed: No Studies - Discharge Plan Condition: Good Disposition: HOME Patient Education Materials: Pharyngitis (ED) Referrals: Shanice Griffin MD [Primary Care Provider] - 3 Days Additional Instructions: 1-Please take ibuprofen PO q6-8hrs prn as instructed after meals to alleviate pain and swelling. Increase fluid intake, eat well, rest and avoid strenuous exercise 2-If symptoms do not improve or worsen please return to the urgent care or f/u with your PCP for further evaluation and treatment. - Billing Disposition and Condition Condition: GOOD Disposition: Home
== END 2019-05-24 11:43 | disposition home or self-care (01) ==
LOC: UCCORT 10:07
DX: J02.8 Acute pharyngitis due to other specified organisms (principal); I10 Essential (primary) hypertension; G89.29 Other chronic pain; M54.9 Dorsalgia, unspecified
CPT/HCPCS: 87651; 99211; G0463

== ENCOUNTER 2019-06-15 18:08 | Emergency (ER) | payer OTHER ==
[2019-06-15 18:42] VITALS: BP 163/109
[2019-06-15] MEDS ORDERED: Meclizine TAB* 12.5 MG PO ONE (19:14)
--- NOTE | 2019-06-15 19:20 | UC ---
UC General HPI - HPI Summary HPI Summary: 39-year-old woman comes in complaining of dizziness and fatigue. Been going on for about 3 weeks. She gets a spinning dizziness when she moves her head. No fevers or chills no rhinorrhea no ear pain. Also been feeling very fatigued. Sometimes she gets tingling in both of her hands. She is chronic body pain which is unchanged. - History of Current Complaint Chief Complaint: UCBackPain Stated Complaint: BACK PAIN Time Seen by Provider: 06/15/19 18:44 Hx Last Menstrual Period: 11/25/18 Pain Intensity: 9 - Allergy/Home Medications Allergies/Adverse Reactions: Allergies Allergy/AdvReac Type Severity Reaction Status Date / Time morphine Allergy See Comment Verified 06/15/19 18:41 Home Medications: Home Medications Acetaminophen [Tylenol Extra Strength] 1,000 mg PO ONCE PRN 06/15/19 [History Confirmed 06/15/19] PMH/Surg Hx/FS Hx/Imm Hx Previously Healthy: Yes Endocrine History: Diabetes Cardiovascular History: Hypertension GI/ History: Gastroesophageal Reflux - Surgical History Surgical History: Yes Surgery Procedure, Year, and Place: vocal cord surgery 2011. gastric bypass. ulcer surgery- 01/2017. hysterctomy 11/2018 - Family History Known Family History: Positive: Cardiac Disease, Hypertension, Diabetes - Social History Alcohol Use: None Substance Use Type: None Smoking Status (MU): Never Smoked Tobacco Have You Smoked in the Last Year: No Review of Systems All Other Systems Reviewed And Are Negative: Yes Constitutional: Positive: Other - SEE HPI Skin: Positive: Negative Eyes: Positive: Negative ENT: Positive: Negative Respiratory: Positive: Negative Cardiovascular: Positive: Negative Gastrointestinal: Positive: Negative Genitourinary: Positive: Negative Motor: Positive: Negative Neurovascular: Positive: Negative Musculoskeletal: Positive: Other: - SEE HPI Neurological: Positive: Other - SEE HPI Psychological: Positive: Negative Is Patient Immunocompromised?: No Physical Exam Triage Information Reviewed: Yes Appearance: Well-Appearing, No Pain Distress, Well-Nourished Vital Signs: Initial Vital Signs Temp 98.5 F 06/15/19 18:32 Pulse 81 06/15/19 18:32 Resp 20 06/15/19 18:32 BP 163/109 06/15/19 18:32 Pulse Ox 100 06/15/19 18:32 Vital Signs Reviewed: Yes Eye Exam: Normal Eyes: Positive: Conjunctiva Clear, Other: - PERRLA/EOMI, NO NYSTAGMUS ENT: Positive: Pharynx normal, TMs normal Neck: Positive: Supple Respiratory: Positive: Lungs clear, Normal breath sounds, No respiratory distress Cardiovascular: Positive: RRR Musculoskeletal: Positive: Strength Intact, ROM Intact Neurological: Positive: Alert, Muscle Tone Normal Psychological: Positive: Age Appropriate Behavior Skin Exam: Normal Course/Dx - Course Course Of Treatment: CBC CMP and TSH pending. Prescription for meclizine written. Follow-up with her primary care doctor reevaluate sooner if worse or any questions or concerns. - Diagnoses Provider Diagnosis: Vertigo, Fatigue Discharge - Sign-Out/Discharge Documenting (check all that apply): Patient Departure All imaging exams completed and their final reports reviewed: No Studies - Discharge Plan Condition: Stable Disposition: HOME Prescriptions: Meclizine HCl [Motion Sickness Relief] 25 mg PO Q6HR PRN #20 tablet PRN Reason: Dizziness Patient Education Materials: Vertigo (ED), Fatigue (ED) Referrals: Sally Dixon MD [Primary Care Provider] - Additional Instructions: FOLLOW UP WITH YOUR DOCTOR IF NOT COMPLETELY IMPROVED. GET RECHECKED SOONER IF YOUR CONDITION WORSENS OR ANY QUESTIONS OR CONCERNS. - Billing Disposition and Condition Condition: STABLE Disposition: Home
[2019-06-16 12:07] LABS: ABS Basophils 0.1 10^3/ul (0-0.2); ABS Eosinophils 0.1 10^3/ul (0-0.6); ABS Lymphocytes 1.6 10^3/ul (1.0-4.8); ABS Monocytes 0.6 10^3/ul (0-0.8); Eosinophil % 1.6 %; Hematocrit 47 % (35-47); Lymphocyte % 21.5 %; Mean Corpuscular HGB Conc 34 g/dL (31-36); Mean Corpuscular Hemoglobin 30 pg (27-31); Mean Corpuscular Volume 90 fL (80-97); Mean Platelet Volume 7.5 fL (7.4-10.4); Nucleated Red Blood Cells % 0.4; Platelet Count 334 10^3/uL (150-450); Red Blood Count 5.28 10^6 /uL (3.70-4.87); Red Cell Distribution Width 14 % (10-15); White Blood Count 7.3 10^3/uL (3.5-10.8)
[2019-06-16 12:12] LABS: Albumin 4.5 g/dL (3.2-5.2); Calcium 9.7 mg/dL (8.6-10.3); Potassium 4.1 mmol/L (3.5-5.0); Total Bilirubin 0.7 mg/dL (0.2-1.0)
[2019-06-16 12:18] LABS: Albumin/Globulin Ratio 1.5 (1-3); BUN/Creatinine Ratio 13.1 (8-20); EGFR African American 91.3 (>60); EGFR Non-African American 75.5 (>60); Total Protein 7.5 g/dL (6.4-8.9)
[2019-06-16 12:33] LABS: TSH (Thyroid Stimulating Horm) 1.37 mcIU/mL (0.34-5.60)
--- NOTE | 2019-06-16 18:36 | UC ---
- Progress Note Progress Note: CBC WNL CMP with slightly elevated liver enzymes - given BMI, there is a possibility of fatty liver --- unlikely related to her symptoms at her UC visit. Recommend f/u with PCP for further eval. TSH WNL Course/Dx - Diagnoses Provider Diagnoses: Vertigo, Fatigue Discharge - Sign-Out/Discharge Documenting (check all that apply): Post-Discharge Follow Up All imaging exams completed and their final reports reviewed: No Studies - Discharge Plan Condition: Stable Disposition: HOME Prescriptions: Meclizine HCl [Motion Sickness Relief] 25 mg PO Q6HR PRN #20 tablet PRN Reason: Dizziness Patient Education Materials: Vertigo (ED), Fatigue (ED) Referrals: Sally Dixon MD [Primary Care Provider] - Additional Instructions: FOLLOW UP WITH YOUR DOCTOR IF NOT COMPLETELY IMPROVED. GET RECHECKED SOONER IF YOUR CONDITION WORSENS OR ANY QUESTIONS OR CONCERNS. - Billing Disposition and Condition Condition: STABLE Disposition: Home
== END 2019-06-15 20:14 | disposition home or self-care (01) ==
LOC: UCEAST 18:08
DX: R42 Dizziness and giddiness (principal); R53.83 Other fatigue; E11.9 Type 2 diabetes mellitus without complications; I10 Essential (primary) hypertension; K21.9 Gastro-esophageal reflux disease without esophagitis; Z88.5 Allergy status to narcotic agent
CPT/HCPCS: 36415; 80053; 84443; 85025; 99212; A9270-GY; G0463

== ENCOUNTER → 2019-08-16 05:33 | Day surgery (SDC) | payer OTHER ==
--- NOTE | 2019-08-08 10:18 | HP ---
HISTORY AND PHYSICAL: DATE OF ADMISSION/SURGERY: 08/16/19 DATE OF OFFICE VISIT: 08/03/19 ATTENDING SURGEON: Dr. Lorena Esquivel.* (DICTATED BY REAGAN GUPTA) PROCEDURE: Right wrist carpal tunnel release. CHIEF COMPLAINT: Bilateral wrist pain. HISTORY OF PRESENT ILLNESS: Shraddha is a 39-year-old female who has had a long history of bilateral carpal tunnel. She has tried injection in the past. She was also booked for surgery in March of 2019, but had to cancel due to a family member moving to [place], she had to assist with the moving. She had injections at the last office visit that wore off quickly. She would like to proceed with surgery at this point. As a review, she has had carpel tunnel symptoms on and off for several years since 2007, but they are increasing in frequency and severity in the past couple of months. She has noticed weakness and she has been dropping things as well as an increase in the numbness and tingling in the median nerve distribution of both hands. She states that the right hand is worse than left. She is right handed. She has failed conservative treatments and is ready for surgery at this point. PAST MEDICAL HISTORY: Hypertension, PCOS, chronic back pain, migraines, asthma , PTSD, depression, bilateral carpal tunnel syndrome. PAST SURGICAL HISTORY: Hysterectomy, Keiry-en-Y gastric bypass, gastric perforation repair, polyp removed from vocal cords. She has no known anesthesia problems. MEDICATIONS: 1. Symbicort 160/4.5 mcg 2 puffs twice a day. 2. Lisinopril 20 mg 1 p.o. daily. 3. Cyclobenzaprine HCL 5 mg 1 to 2 tabs p.o. at bedtime for muscle spasm. 4. FeroSul 325 mg 1 p.o. daily. 5. Docusate sodium 100 mg 1 tab every 12 hours as needed for constipation. 6. Cetirizine HCL 10 mg 1 p.o. daily. 7. Metformin HCL 500 mg 1 p.o. twice a day. 8. Sumatriptan succinate 100 mg 1 p.o. p.r.n. for headaches. 9. Albuterol 90 mcg 2 puffs p.o. 4 times daily p.r.n. 10. Effexor XR 150 mg 2 tabs p.o. daily. 11. Prazosin HCL 5 mg 1 p.o. daily in the evening. 12. Melatonin 5 mg 1 p.o. before bedtime. 13. Omeprazole 40 mg 1 p.o. daily. 14. vitamin 1 p.o. daily. 15. Ativan 0.5 mg 1 tab p.o. twice a day as needed for anxiety. ALLERGIES: MORPHINE and PENICILLIN. FAMILY HISTORY: Positive for cancer and coronary artery disease. SOCIAL HISTORY: The patient is disabled. She lives at home with her . She denies any tobacco or recreational drug use or alcohol use. She is right hand dominant. REVIEW OF SYSTEMS: General: Negative for fevers, chills, night sweats, unexplained weight loss or gain. No known anesthesia problems. HEENT: Negative for headaches, lightheadedness, syncopal episodes, or visual changes. Integumentary: Negative for abrasions, lesions, or open wounds, or rashes. Cardiothoracic: Negative for chest pain, palpitations, or edema. Respiratory: Negative for shortness of breath with exertion, chronic cough, or wheezing. GI : Negative for nausea, vomiting, diarrhea, constipation, or GERD symptoms. : Negative for nocturia, urinary frequency, urgency, history of UTIs, or kidney problems. Musculoskeletal: Positive for bilateral hand numbness and tingling. Positive for chronic back pain. Negative for history of fractures. Neurologic : Positive for paresthesias and numbness of both the feet and hands; feet from herniated disk, hands from carpal tunnel. Negative for history of seizure, stroke, or poor balance. Negative for anxiety, depression. Endocrine: Negative for diabetes or thyroid issues. Hematologic: Positive for easy bruising. Negative for anemia, bleeding disorders, or history of DVT or PE. ID : Negative for history of MRSA infection, hep C, or HIV. PHYSICAL EXAMINATION GENERAL: Well-developed, well-nourished 39-year-old female, in no acute distress. Appropriate mood and affect. Appropriate dress and hygiene. Well coordinated bilateral upper and lower extremities. VITAL SIGNS: Height 61.5 inches, weight 304 pounds, pulse 88, BP 126/76, BMI 56.5. HEENT: Normocephalic, atraumatic. PERRLA. Extraocular movements intact. Throat is clear. NECK: Supple. No palpable lymph nodes. PULMONARY: Lungs are clear to auscultation bilaterally. No wheezes, rales, or rhonchi. CARDIO: Regular rate and rhythm. S1 and S2 normal. No murmurs, rubs, or gallops. No edema. ABDOMEN: Positive bowel sounds. Soft and nontender. NEUROLOGIC: A and O x3. Cranial nerves II through XII intact. Sensation is intact to light touch. MUSCULOSKELETAL: Bilateral hands: Skin is intact without abrasions or open wounds. There is no soft tissue swelling, erythema, or bruising. She is nontender to palpation about the wrists and hands. She has full range of motion of both wrists and hands. She does have decreased inspector balance wheel motion strength bilaterally, more so on the right. She has some thenar atrophy on the right compared to the left. She has some decreased sensation to light touch over the median nerve distributions bilaterally. She states that sensation is decreased more on the right than that is on left. Full strength of the wrist and fingers with some decreased strength with some abduction bilaterally. Radial pulse 2+ bilaterally. IMPRESSION: Bilateral carpal tunnel, right worse than left. PLAN: The patient is scheduled to undergo a right wrist carpal tunnel release with Dr. Esquivel on 08/16/19. She will return to the office 10 days postop for followup and suture removal. A prescription for Percocet will be e-scribed to the patient's pharmacy for postoperative pain management and I-STOP will be completed before prescribing. REAGAN GUPTA [id number]/[facility] #: [id number] SIMÓN
[~2019-08-16 05:33] MED LIST: Buffered Lidocaine 1% SYRIN* 1 ML/SYRINGE INTRADERM ONE; Lactated Ringers 1000 ML Bag* 1,000 ML IV SCH; Lidocaine 1% INJ* 10 MG/ML 30 ML SDV ONE; Lidocaine 2% PF * 5 ML VIAL ONE; Midazolam* 1 MG/ML 2 ML VIAL (2 MG) ONE; Naloxone* 0.4 MG/ML 1 ML VIAL IV PRN; Propofol* 10 MG/ML 20 ML BTL ONE; fentaNYL* 50 MCG/ML 2 ML VIAL (100 MCG VIAL) ONE
[2019-08-16 08:31] VITALS: BP 133/75
--- NOTE | 2019-08-16 10:30 | OP ---
DATE OF OPERATION: 08/16/19 - [facility] DATE OF : 80 SURGEON: Lorena Esquivel MD. TUBE KNITTER: REAGAN Street. ANESTHESIA: Local MAC. PRE-OP DIAGNOSIS: Right carpal tunnel syndrome. POST-OP DIAGNOSIS: Right carpal tunnel syndrome. OPERATIVE PROCEDURE: Right carpal tunnel release. ESTIMATED BLOOD LOSS: Zero. TOURNIQUET TIME: About 10 minutes. INDICATIONS FOR PROCEDURE: Shraddha is a 39-year-old female with numbness and tingling in the median nerve distribution of her right hand. She presents for right carpal tunnel release. DESCRIPTION OF PROCEDURE: The patient was brought to the operating room, was given a sedation anesthetic and a local infiltration of 10 cc of 1% plain lidocaine in the palm of her right hand. The skin of her right hand and forearm was prepped and draped in the usual sterile fashion. The hand and forearm were exsanguinated and the tourniquet elevated to 250 mmHg. A longitudinal incision was made in the palm in line with the right finger. We dissected through the subcutaneous tissue down to the transverse carpal ligament. The ligament was divided sharply with a knife and then more proximally with the scissors. The nerve was dissected free from the surrounding tissue. There was an area of significant compression at the proximal aspect of the ligament. The wound was copiously irrigated with saline. The skin edges were reapproximated with 4-0 nylon suture in an interrupted fashion. The wound was dressed with Xeroform, 4x4, Webril, and an Dedrick wrap. The patient tolerated the procedure well and was brought to the recovery room in good condition. [id number]/[facility] #: [id number] MTDD
== END | disposition home or self-care (01) ==
LOC: OR 05:33
PROVIDERS: ATTEND Orthopaedic Surgery
DX: G56.01 Carpal tunnel syndrome, right upper limb (principal); E66.01 Morbid (severe) obesity due to excess calories; I10 Essential (primary) hypertension; E11.9 Type 2 diabetes mellitus without complications; Z79.84 Long term (current) use of oral hypoglycemic drugs; E28.2 Polycystic ovarian syndrome; J45.909 Unspecified asthma, uncomplicated; F43.10 Post-traumatic stress disorder, unspecified; F32.9 Major depressive disorder, single episode, unspecified; Z88.0 Allergy status to penicillin; Z88.8 Allergy status to other drugs, medicaments and biological substances
CPT/HCPCS: J2250; J2704; J3010

== ENCOUNTER 2020-01-17 05:36 | Day surgery (SDC) | payer OTHER ==
--- NOTE | 2020-01-09 12:33 | HP ---
PREOPERATIVE HISTORY AND PHYSICAL: DATE OF ADMISSION/SURGERY: 01/17/20 DATE OF OFFICE VISIT/ENCOUNTER: 01/02/20 ATTENDING SURGEON: Lorena Stallings MD.* (DICTATED BY REAGAN RODRÍGUEZ) PROCEDURE: Left wrist carpal tunnel release. HISTORY OF PRESENT ILLNESS: This is a 39-year-old female who has a long history of carpal tunnel syndrome on the left. She underwent a right carpal tunnel release with Dr. Stallings in July of 2019 and has done well with that. She would like to proceed with a left wrist carpal tunnel release. She has failed conservative treatment including cortisone injection and bracing. She reports that the symptoms including weakness in her hands have progressed. She would like a more definitive treatment at this time. PAST MEDICAL HISTORY: 1. Hypertension. 2. PCOS. 3. Chronic back pain. 4. Migraines. 5. Asthma. 6. PTSD. 7. Depression. 8. Fibromyalgia. 9. Diabetes. PAST SURGICAL HISTORY: 1. Right carpal tunnel release. 2. Hysterectomy. 3. Keiry-en-Y gastric bypass. 4. Gastric perforation repair. 5. Polyp removed from vocal cords. She has no known anesthesia problems. CURRENT MEDICATIONS: 1. Albuterol 2 puffs q.i.d. p.r.n. 2. Amitriptyline HCl 10 mg daily. 3. Ativan 0.5 mg twice a day p.r.n. anxiety. 4. Cetirizine HCl 10 mg daily. 5. Docusate sodium 100 mg q.12 hours p.r.n. constipation. 6. Lisinopril 20 mg daily. 7. Melatonin 5 mg daily. 8. Metformin HCl 500 mg twice a day. 9. Prazosin HCl 5 mg daily. 10. Sumatriptan succinate 100 mg at the start of headache. 11. Symbicort 2 puffs twice a day. ALLERGIES: MORPHINE and PENICILLIN. FAMILY MEDICAL HISTORY: Positive for cancer and coronary artery disease. SOCIAL HISTORY: The patient is disabled. She lives at home with her . She denies any tobacco, recreational drug use, or alcohol use. She is right- hand dominant. REVIEW OF SYSTEMS: Negative for general, cephalic, cardiovascular, respiratory , GI, , other musculoskeletal, integumentary, endocrine, neurologic, and hematologic symptoms. Infectious Disease: Negative for MRSA, hepatitis C, HIV. PHYSICAL EXAMINATION GENERAL: A well-developed, well-nourished 39-year-old female, in no acute distress. VITAL SIGNS: Height 5 feet 1-1/2 inches, weight 314 pounds. Pulse rate 117, blood pressure 142/84. HEENT: Normocephalic, atraumatic. Pupils are equal, round, and reactive to light and accommodation. Extraocular movements are intact. Throat is clear. NECK: Supple. No palpable lymph nodes. PULMONARY: Lungs are clear to auscultation bilaterally. No wheezes, rales, or rhonchi. CARDIOVASCULAR: Regular rate and rhythm. S1, S2. No murmurs, rubs, or gallops. No edema. ABDOMEN: Positive bowel sounds. Soft, nontender. NEUROLOGICAL: Alert and oriented x3. Cranial nerves II through XII are intact. MUSCULOSKELETAL: On exam of her left wrist and hand, skin is intact without abrasions or open wounds. There is no soft tissue swelling, erythema, or bruising. She has mild thenar atrophy and weakness with thumb abduction. She has slightly decreased sensation to light touch over the median nerve distribution, positive Tinel sign at the median nerve. IMPRESSION: Left wrist carpal tunnel syndrome. PLAN: The patient is scheduled to undergo a left wrist carpal tunnel release with Dr. Stallings on 01/17/20. She will follow up 10 days postop for followup and suture removal. A prescription for Hope was e-scribed to the patient's pharmacy for postoperative pain management. REAGAN RODRÍGUEZ [id number]/[facility] #: [id number] SIMÓN
[~2020-01-17 05:36] MED LIST changes: -Lactated Ringers 1000 ML Bag* 1,000 ML IV SCH; -Lidocaine 1% INJ* 10 MG/ML 30 ML SDV ONE; -Lidocaine 2% PF * 5 ML VIAL ONE; -Midazolam* 1 MG/ML 2 ML VIAL (2 MG) ONE; -Naloxone* 0.4 MG/ML 1 ML VIAL IV PRN; -Propofol* 10 MG/ML 20 ML BTL ONE; -fentaNYL* 50 MCG/ML 2 ML VIAL (100 MCG VIAL) ONE
[2020-01-17] MEDS ORDERED: Lactated Ringers 1000 ML Bag* 1,000 ML IV SCH (06:00)
[2020-01-17] MEDS ORDERED: Famotidine IV* 10 MG/ML 2 ML (20 mg) IV ONE (06:00)
[2020-01-17] MEDS ORDERED: Buffered Lidocaine 1% SYRIN* 1 ML/SYRINGE INTRADERM ONE (06:28)
[2020-01-17] MEDS ORDERED: Famotidine IV* 10 MG/ML 2 ML (20 mg) ONE (06:28)
[2020-01-17] MEDS ORDERED: Lidocaine 1% INJ* 10 MG/ML 30 ML SDV ONE ×2 (06:58→07:02)
[2020-01-17] MEDS ORDERED: fentaNYL* 50 MCG/ML 2 ML VIAL (100 MCG VIAL) ONE (07:03)
[2020-01-17] MEDS ORDERED: Propofol* 10 MG/ML 20 ML BTL ONE (07:04)
[2020-01-17] MEDS ORDERED: Midazolam* 1 MG/ML 5 ML VIAL (5 MG) ONE (07:04)
[2020-01-17] MEDS ORDERED: Lidocaine 2% PF * 5 ML VIAL ONE (07:04)
[2020-01-17] MEDS ORDERED: Ondansetron INJ* 2 MG/ML VIAL IV PRN (07:17)
[2020-01-17] MEDS ORDERED: Naloxone* 0.4 MG/ML 1 ML VIAL IV PRN (07:17)
[2020-01-17] MEDS ORDERED: Ketorolac INJ* 30 MG/ML 1 ML VIAL IV PRN (07:17)
[2020-01-17] MEDS ORDERED: HYDROcodone/ACETAMIN 5-325 MG* 1 TAB PO PRN (07:17)
[2020-01-17] MEDS ORDERED: fentaNYL* 50 MCG/ML 2 ML VIAL (100 MCG VIAL) IV PRN (07:17)
[2020-01-17] MEDS ORDERED: oxyCODONE/Acetamin 5/325 MG* TAB PO PRN (07:17)
[2020-01-17 08:58] VITALS: BP 101/82
--- NOTE | 2020-01-17 14:16 | OP ---
DATE OF OPERATION: 01/17/20 - [facility] DATE OF : 80 SURGEON: Dr. Stallings. DENIAL RESOLUTION SPECIALIST: REAGAN Street ANESTHESIA: Local MAC. PRE-OP DIAGNOSIS: Left carpal tunnel syndrome. POST-OP DIAGNOSIS: Left carpal tunnel syndrome. OPERATIVE PROCEDURE: Left carpal tunnel release. INDICATIONS: Shraddha is a 39-year-old female who has numbness and tingling in the median nerve distribution of the left hand. She presents for left carpal tunnel release after doing well with a right carpal tunnel release. ESTIMATED BLOOD LOSS: Zero. TOURNIQUET TIME: Approximately 10 minutes. DESCRIPTION OF PROCEDURE: The patient was brought to the operating room, was given a sedation anesthetic and local infiltration of 10 cc of 1% plain lidocaine in the palm of her left hand. Skin of her left hand and forearm was prepped and draped in the usual sterile fashion. The hand and forearm were exsanguinated and tourniquet elevated to 250 mmHg. A longitudinal incision was made in the palm in line with the ring finger. We dissected through the subcutaneous tissues down to the transverse carpal ligament. The ligament was divided sharply with a knife and then more proximally with a scissors. The nerve was dissected free from the surrounding tissue and there is an area of moderate compression at the mid portion of the ligament. The wound was irrigated and the skin edges were reapproximated with 4-0 nylon suture. The wound was dressed with Xeroform, 4x4, Webril and an Dedrick wrap. The patient tolerated the procedure well and was brought to the recovery room in good condition. [id number]/[facility] #: [id number] [facility]
== END 2020-01-17 08:50 | disposition home or self-care (01) ==
LOC: OR 05:36
PROVIDERS: ATTEND Orthopaedic Surgery
DX: G56.02 Carpal tunnel syndrome, left upper limb (principal); I10 Essential (primary) hypertension; E28.2 Polycystic ovarian syndrome; J45.909 Unspecified asthma, uncomplicated; F43.10 Post-traumatic stress disorder, unspecified; E11.9 Type 2 diabetes mellitus without complications; Z79.84 Long term (current) use of oral hypoglycemic drugs; M79.7 Fibromyalgia; Z88.0 Allergy status to penicillin; Z88.8 Allergy status to other drugs, medicaments and biological substances
CPT/HCPCS: J2250; J2704; J3010